=== PATIENT | female | born 1975 | race Caucasian/White ===

== ENCOUNTER 2019-11-28 21:19 | Emergency (ER) | payer SELFPAY ==
[2019-11-28] MEDS ORDERED: KETOROLAC TROMETHAMINE 60 MG/2 ML SDV IM ONE (21:42)
--- NOTE | 2019-11-28 21:43 | ER Document Report ---
ED Medical Screen (RME) - General Chief Complaint: Pelvic Pain Stated Complaint: PELVIC/LEG PAIN Time Seen by Provider: 11/28/19 21:37 - HPI Notes: 11/28/19 21:43 43 yr old female with complaints of left flank pain x 3 weeks ago. was seen at a today and had hematuria with left flank pain. no hx of kidney stones. eating/drinking without issues. Has not tried any [id number] medications. It was advised by urgent care to come to the emergency room for possible nephrolithiasis. Last menstrual cycle was November 23, 2019. Denies any vaginal discharge, vaginal bleeding. Denies any chest pain or shortness of breath. I have greeted and performed a rapid initial assessment of this patient. A comprehensive ED assessment and evaluation of the patient, analysis of test results and completion of the medical decision making process will be conducted by additional ED providers. PHYSICAL EXAMINATION: CV: s1, s2 regular LUNGS: No respiratory distress abd: no cva tenderness, no abd pain Musculoskeletal: Normal range of motion NEUROLOGICAL: Normal speech, normal gait. SKIN: Warm, Dry, normal turgor, no rashes or lesions noted. - Related Data Allergies/Adverse Reactions: ampicillin Allergy (Verified 11/28/19 21:35) Physical Exam - Vital signs Vitals: Temp Pulse Resp BP Pulse Ox 99.0 F 98 20 172/90 H 100 11/28/19 21:29 11/28/19 21:29 11/28/19 21:29 11/28/19 21:29 11/28/19 21:29 Course - Vital Signs Vital signs: Temp Pulse Resp BP Pulse Ox 99.0 F 98 20 172/90 H 100 11/28/19 21:29 11/28/19 21:29 11/28/19 21:29 11/28/19 21:29 11/28/19 21:29
[2019-11-28 22:34] LABS: APPEARANCE,URINE CLEAR; BILIRUBIN,URINE NEGATIVE (NEGATIVE); COLOR,URINE COLORLESS; GLUCOSE, URINE NEGATIVE (NEGATIVE); KETONES,URINE NEGATIVE (NEGATIVE); LEUKOCYTE ESTERASE,URINE NEGATIVE (NEGATIVE); NITRITE,URINE NEGATIVE (NEGATIVE); PROTEIN,URINE NEGATIVE (NEGATIVE); URINE SPECIFIC GRAVITY 1.002; UROBILINOGEN,URINE NEGATIVE mg/dL (<2.0)
[2019-11-29 01:25] LABS: ABSOLUTE BASOPHILS # (AUTO) 0.1 10^3/uL (0.0-0.2); ABSOLUTE LYMPHOCYTES (AUTO) 2.3 10^3/uL (0.5-4.7); ABSOLUTE MONOCYTES (AUTO) 0.7 10^3/uL (0.1-1.4); ABSOLUTE NEUT (AUTO) 7.6 10^3/uL (1.7-8.2); BASOPHILS % (AUTO) 0.6 % (0-2); EOSINOPHILS % (AUTO) 0.4 % (0-6); HEMATOCRIT 34.5 % (36.0-47.0); LYMPHOCYTES % (AUTO) 21.1 % (13-45); MEAN CORPUSCULAR HEMOGLOBIN 22.3 pg (27.0-33.4); MEAN CORPUSCULAR VOLUME 70 fl (80-97); MONOCYTES % (AUTO) 6.5 % (3-13); PLATELET COUNT 383 10^3/uL (150-450); RED BLOOD COUNT 4.95 10^6/uL (3.72-5.28); RED CELL DISTRIBUTION WIDTH 17.3 % (11.5-14.0); SEGMENTED NEUTROPHILS % (AUTO) 71.4 % (42-78); TOTAL CELLS COUNTED % (AUTO) 100 %; WHITE BLOOD COUNT 10.7 10^3/uL (4.0-10.5)
[2019-11-29 01:43] LABS: BLOOD UREA NITROGEN 6 mg/dL (7-20); CALCIUM 9.5 mg/dL (8.4-10.2); GLUCOSE 95 mg/dL (75-110)
[2019-11-29 01:44] LABS: ALBUMIN 4.4 g/dL (3.5-5.0); ALKALINE PHOSPHATASE 75 U/L (38-126); ANION GAP 8 (5-19); ASPARTATE AMINO TRANSFERASE 23 U/L (14-36); BILIRUBIN,TOTAL 0.9 mg/dL (0.2-1.3); CARBON DIOXIDE 25 mmol/L (22-30); CHLORIDE 105 mmol/L (98-107); POTASSIUM 3.7 mmol/L (3.6-5.0); TOTAL PROTEIN 7.5 g/dL (6.3-8.2)
--- NOTE | 2019-11-29 01:44 | RADIOLOGY REPORT (SQ) ---
EXAM DESCRIPTION: CT ABDOMEN PELVIS WITHOUT IV CONTRAST COMPLETED DATE/TME: 11/28/2019 21:41 CLINICAL HISTORY: L flank pain x 3 weeks. HCG NEG COMPARISON: None Available. TECHNIQUE: CT of the abdomen and pelvis without IV contrast. Evaluation of the solid organs and vasculature is suboptimal due to lack of IV contrast. FINDINGS: Lung Bases: The visualized lung bases are clear. Bones: No destructive bone lesions identified. Abdomen: Liver: The liver has normal size and density. Gallbladder: No calcified gallstones. Spleen, Pancreas, and Adrenal Glands: The spleen, pancreas, and adrenal glands are unremarkable. Kidneys: The kidneys have normal size without evidence of hydronephrosis. No obstructing ureteral calculi. Nonobstructing left nephrolithiasis. Vasculature: The aorta and IVC have normal caliber and position. Stomach: The stomach and duodenum have normal course. Other: No free intraperitoneal air. No free fluid or lymphadenopathy. Pelvis: Bladder: Urinary bladder is unremarkable. Bowel: No dilated loops of large or small bowel. Appendix: Normal appendix. Pelvis: In the right adnexa there is an ovoid cystic structure measuring 6.6 x 2.5 cm. In the left adnexa there is a ovoid cystic structure measuring 6.0 x 2.4 cm. IMPRESSION: 1. Bilateral adnexal cystic structures may represent ovarian cysts or hydrosalpinx, the largest is on the right measuring 6.6 cm. Recommend prompt follow-up with pelvic US. Reference: J Am Nader Radiol 2013;10:675-681 2. Nonobstructing left nephrolithiasis. This exam was performed according to our departmental dose-optimization program, which includes automated exposure control, adjustment of the mA and/or kV according to patient size and/or use of iterative reconstruction technique.
--- NOTE | 2019-11-29 03:36 | RADIOLOGY REPORT (SQ) ---
Ultrasound of the pelvis: 11/29/2019 2:33 AM CDT HISTORY: 43-year-old patient with abdominal and pelvic pain, abnormal CT findings. TECHNIQUE: Multiple grayscale and color Doppler images of the pelvis were obtained transabdominally and transvaginally. COMPARISON: None available FINDINGS: The uterus measures 8.7 x 5.6 x 4.7 cm. The endometrium measures 9-10 mm in thickness. No myometrial mass is seen. No free intraperitoneal fluid is seen within the posterior cul-de-sac. The right ovary measures 3.3 x 1.7 x 1.7 cm. The left ovary measures 3.9 x 2.3 x 3.0 cm. There is a tubular hypoechoic structure seen at the left adnexa which is likely under measured on recent ultrasound imaging. This measures at least 6.0 x 1.9 x 1.8 cm. There is a similar structure seen at the right adnexa measuring at least 2.9 x 2.2 x 1.8 cm. These are consistent with bilateral hydrosalpinx. There may be a physiologic cyst versus portions of a tube seen at the left ovary/adnexa measuring up to 2.7 cm. Some venous waveforms were obtained from the ovaries. IMPRESSION: There bilateral hydrosalpinx present.
--- NOTE | 2019-11-29 07:56 | ER Document Report ---
ED General - General Chief Complaint: Abdominal Pain Stated Complaint: PELVIC/LEG PAIN Time Seen by Provider: 11/28/19 21:37 Notes: 43-year-old female presents with pain in her left hip which radiates down her left leg after moving about a week and a half has been worse present present for about a month. Worse after she moved from a single-story to a double story house. The pain goes to her left pelvis occasionally to her left groin mostly on her left thigh. She has no current abdominal pain. She has no dyspareunia had sex 2 days ago with no issues no discharge no bleeding. Prior history of chlamydia and infertility "my tubes have grown together." She has no numbness or tingling in her ankle now but has had intermittent tingling in the left side of her left foot. She was seen 10 hours ago by [facility] is been in the waiting room since. Had a CT and ultrasound and labs. No urinary symptoms. - Related Data Allergies/Adverse Reactions: ampicillin Allergy (Verified 11/28/19 21:35) Past Medical History - Social History Smoking Status: Current Every Day Smoker Frequency of alcohol use: None Drug Abuse: None Family History: None Patient has homicidal ideation: No Review of Systems - Review of Systems Notes: REVIEW OF SYSTEMS GEN: Denies fever, chills, weight loss ENT: Denies sore throat, nasal discharge, ear pain EYES: Denies blurry vision, eye pain, discharge CV: Denies chest pain, palpitations, edema RESP: Denies cough, shortness of breath, wheezing GI: Denies abdominal pain, nausea, vomiting, diarrhea MSK: HPI SKIN: Denies rash, skin lesions LYMPH: Denies swollen glands/lymph nodes NEURO: Denies headache, focal weakness or numbness, dizziness PSYCH: Denies depression, suicidal or homicidal ideation PHYSICAL EXAMINATION General: No acute distress, well-nourished Head: Atraumatic, normocephalic ENT: Mouth normal, oropharynx moist, no exudates or tonsillar enlargement Eyes: Conjunctiva normal, pupils equal, lids normal Neck: No JVD, supple, no guarding CVS: Normal rate, regular rhythm, no murmurs Resp: No resp distress, equal and normal breath sounds bilaterally GI: Nondistended, soft, no tenderness to palpation, no rebound or guarding Ext: No deformities, no edema, normal range of motion in upper and lower ext Back: No CVA or midline TTP Skin: No rash, warm Lymphatic: No lymphadeopathy noted Neuro: Awake, alert. Face symmetric. GCS 15. Physical Exam - Vital signs Vitals: Temp Pulse Resp BP Pulse Ox 99.0 F 98 20 172/90 H 100 11/28/19 21:29 11/28/19 21:29 11/28/19 21:29 11/28/19 21:29 11/28/19 21:29 Course - Re-evaluation Re-evalutation: 11/29/19 08:01 Hip pain going to the leg likely radiculopathic in nature, the patient has no abdominal tenderness no dyspareunia does not need a pelvic exam despite a white count of 10.7 and having hydrosalpinx on her imaging this seems like a chronic finding given that she has known history of chlamydia and infertility. She has no current symptoms of PID or TOA she is afebrile and looks excellent. Going put on a prednisone taper for her sciatica and refer her to women's health for hydrosalpinx and discharged home. I have discussed with the patient there likely diagnosis, aftercare plan, follow-up plans and my usual and customary return precautions. They verbalized understanding of this. - Vital Signs Vital signs: Temp Pulse Resp BP Pulse Ox 99.0 F 98 20 172/90 H 100 11/28/19 21:29 11/28/19 21:29 11/28/19 21:29 11/28/19 21:29 11/28/19 21:29 - Laboratory Result Diagrams: 11/29/19 01:10 11/29/19 01:10 Laboratory results interpreted by me: 11/29/19 11/29/19 01:10 01:10 WBC 10.7 H Hgb 11.0 L Hct 34.5 L MCV 70 L MCH 22.3 L RDW 17.3 H BUN 6 L - Diagnostic Test Radiology reviewed: Image reviewed, Reports reviewed Discharge - Discharge Clinical Impression: Sciatica, left side Condition: Good Disposition: HOME, SELF-CARE Instructions: Sciatica ([facility]) Additional Instructions: Your fallopian tubes have some swelling in them which is likely due to prior infection and is probably the reason for your infertility. If your pelvis or abdomen are bothering you you need to see a women's health specialist Prescriptions: Prednisone [Deltasone 20 mg Tablet] 3 tab PO DAILY 5 Days tablet
[2019-11-29 08:05] VITALS: BP 165/89
== END 2019-11-29 08:04 | disposition home or self-care (01) ==
LOC: ER 21:19
DX: M54.32 Sciatica, left side (principal); N20.0 Calculus of kidney; N70.11 Chronic salpingitis; F17.200 Nicotine dependence, unspecified, uncomplicated; Z88.0 Allergy status to penicillin
CPT/HCPCS: 99284; 96372; 36415; 83690; 85025; 81025; 80053; 81001; 76856; 93976; 74176; J1885